=== PATIENT | female | born 1930 | race Caucasian/White ===

== ENCOUNTER 2017-04-02 13:59 | Emergency (ER) | payer OTHER ==
[2017-04-02 17:20] VITALS: BP 141/74
== END 2017-04-02 17:20 | disposition home or self-care (01) ==
LOC: ED 13:59
DX: S00.83XA Contusion of other part of head, initial encounter (principal); I10 Essential (primary) hypertension; M19.90 Unspecified osteoarthritis, unspecified site; E78.5 Hyperlipidemia, unspecified; X58.XXXA Exposure to other specified factors, initial encounter; Y93.89 Activity, other specified; Y99.8 Other external cause status; Y92.89 Other specified places as the place of occurrence of the external cause

== ENCOUNTER 2020-04-18 09:38 | Emergency (ER) | payer OTHER ==
[~2020-04-18] VITALS: Ht 142.2 cm; Wt 49.9 kg
[2020-04-18 09:53] VITALS: Ht 142.2 cm; Wt 49.9 kg
[2020-04-18 11:34] VITALS: BP 142/84
== END 2020-04-18 11:34 | disposition home or self-care (01) ==
LOC: ED 09:38
DX: S49.92XA Unspecified injury of left shoulder and upper arm, initial encounter (principal); M19.012 Primary osteoarthritis, left shoulder; I10 Essential (primary) hypertension; M06.9 Rheumatoid arthritis, unspecified; E78.00 Pure hypercholesterolemia, unspecified; X58.XXXA Exposure to other specified factors, initial encounter; Y93.89 Activity, other specified; Y92.89 Other specified places as the place of occurrence of the external cause; Y99.8 Other external cause status
CPT/HCPCS: Q0092